=== PATIENT | male | born 1955 | race Caucasian/White ===

== ENCOUNTER 2018-03-29 14:23 | Emergency (ER) | payer MEDICARE, MEDICAID ==
[2018-03-29] MEDS ORDERED: PROPARACAINE HCL OPTH 15ML BTL OPTH ONE (15:04)
[2018-03-29] MEDS ORDERED: POLYMYXIN B SULF/TRIMETHOPRIM 10ML BTL OPTH ONE (15:12)
--- NOTE | 2018-03-29 15:18 | Emergency Department Record ---
History of Present Illness - General Chief complaint: Eye Problem Stated complaint: BOTH EYE IRRATATION Time Seen by Provider: 03/29/18 15:03 Source: Patient, Family ([facility]) Mode of Arrival: Ambulatory Limitations: Other - History of Present Illness Initial comments: 63 yo male presents with bilateral red eyes with some drainage. No fevers. He has slight drainage and crusting. He is significantly autistic and non verbal. No contacts. Very minimal lid swelling. No other changes from his baseline health. chief complaint: Eye redness -: Hour(s) (2) Onset Description: Gradual Location: Both eyes Place: Home If Injury: None Eye Symptoms: Discharge Severity: Mild Consistency: Constant Associated Symptoms: None Treatments Prior to Arrival: None - Related Data Allergies Allergy/AdvReac Type Severity Reaction Status Date / Time metoclopramide [From Reglan] Allergy PT UNSURE Verified 03/29/18 15:15 OF REACTION Review of Systems Constitutional: Denies: Chills, Fever, Malaise, Weakness Eyes: Reports: Eye discharge. Denies: Eye pain, Photophobia, Vision change ENT: Denies: Congestion, Throat pain Respiratory: Denies: Cough Cardiovascular: Denies: Syncope Endocrine: Denies: Fatigue Gastrointestinal: Denies: Diarrhea, Nausea, Vomiting Genitourinary: Denies: Dysuria Musculoskeletal: Denies: Arthralgia, Joint swelling Skin: Denies: Bruising, Change in color, Rash Neurological: Denies: Confusion Psychiatric: Denies: Anxiety Hematological/Lymphatic: Denies: Easy bleeding, Easy bruising Physical Exam - General General Appearance: Alert, Cooperative, No acute distress Limitations: Other (autism) - Head Head exam: Normal inspection - Eye Eye exam: PERRL, Conjunctival injection, Other (slight lid crusting right greater than left). negative: Normal appearance, EOMI, Periorbital swelling, Periorbital tenderness, Scleral icterus Pupils: Normal accommodation. negative: Irregular, Unequal - ENT ENT exam: Normal exam, Mucous membranes moist, Normal orophraynx Ear exam: Normal external inspection Nasal Exam: Normal inspection Mouth exam: Normal external inspection - Neck Neck exam: Normal inspection - Rectal Rectal exam: Deferred - exam: Deferred - Extremities Extremities exam: Normal inspection - Neurological Neurological exam: Alert - Psychiatric Psychiatric exam: Normal affect, Normal mood (baseline) - Skin Skin exam: Dry, Intact, Normal color, Warm Course - Reevaluation(s) Reevaluation #1: 03/29/18 15:15 The examination is limited by his autism as no VA obtained His examination is consistent with conjunctivitis Antibiotics with instructions provided in the ED Disposition Disposition: Discharge Clinical Impression: Conjunctivitis Disposition: Home, Self-Care Condition: (1) Good Instructions: Conjunctivitis (ED) Additional Instructions: This can be contagious Use the drops every 6 hours Use the drops one more day than the symptoms last Forms: Patient Portal Access Time of Disposition: 15:17 Quality - Quality Measures Quality Measures: N/A - Blood Pressure Screening Does Patient Have Any of the Following: No Blood Pressure Classification: Normal BP Reading Systolic Measurement: 117 Diastolic Measurement: 68 Screening for High Blood Pressure: < Normal BP, F/U Not Required > [G8783]
== END 2018-03-29 15:49 | disposition home or self-care (01) ==
LOC: ER 14:23
DX: H10.33 Unspecified acute conjunctivitis, bilateral (principal)
CPT/HCPCS: 99282